=== PATIENT | female | born 1955 | race Asian ===

== ENCOUNTER 2023-06-23 13:52 | Emergency (ER) | payer BC, MEDICAID ==
[~2023-06-23] VITALS: Ht 165.1 cm; Wt 71.7 kg
[2023-06-23] MEDS ORDERED: DexAMETHasone SOD PHOS 10MG/1ML VIAL INJ IM ONE (16:30)
[2023-06-23] MEDS ORDERED: LIDOCAINE VISCOUS 2% 15ML UD MT ONE (16:30)
[2023-06-23] MEDS ORDERED: cefTRIAXone SOD 1,000 MG VL IM ONE (16:30)
[2023-06-23] MEDS ORDERED: ACETAMINOPHEN 325 MG TAB PO ONE (16:30)
[2023-06-23 17:03] VITALS: BP 187/101; PULSE 83; RESP 18; O2SAT 97
[2023-06-23] MEDS ORDERED: BENZ200C64 PO (17:10)
[2023-06-23] MEDS ORDERED: ALBU108A5 IN (17:10)
[2023-06-23] MEDS ORDERED: AMOX500C2 PO (17:10)
[2023-06-23] MEDS ORDERED: BENZLOZ2 MT (17:10)
[2023-06-23 17:11] VITALS: TEMP 98.7
== END 2023-06-23 17:28 | disposition home or self-care (01) ==
LOC: ER 13:52
DX: J03.90 Acute tonsillitis, unspecified (principal); R05.9 Cough, unspecified; H66.93 Otitis media, unspecified, bilateral; Z79.2 Long term (current) use of antibiotics; Z79.899 Other long term (current) drug therapy
CPT/HCPCS: 96372; 99284; J0696; J1100